=== PATIENT | male | born 1990 | race Caucasian/White ===

== ENCOUNTER 2020-04-25 18:14 | Emergency (ER) | payer SELFPAY ==
[~2020-04-25] VITALS: Ht 154.9 cm; Wt 73.0 kg
[2020-04-25] MEDS ORDERED: ONDANSETRON HCL 4MG/2ML INJ IV ONE (18:45)
[2020-04-25] MEDS ORDERED: MORPHINE SULFATE 2 MG/ML CPJ (NOT FOR IM USE) IV ONE (18:45)
[2020-04-25] MEDS ORDERED: ACETAMINOPHEN 325MG TABLET PO ONE (18:45)
[2020-04-25] MEDS ORDERED: TETANUS AND DIPHTHERIA TOX/PF 0.5ML SYR (ADULT) IM ONE (19:00)
[2020-04-25 19:25] LABS: HEMATOCRIT 42.1 % (42.0-52.0); HEMOGLOBIN 14.3 g/dL (14.0-18.0); MEAN CORPUSCULAR HEMOGLOBIN 29.3 pg (28.0-32.0); MEAN CORPUSCULAR VOLUME 85.9 fL (80.0-94.0); PLATELET 259 x1000/uL (130-400); RED CELL DISTRIBUTION WIDTH 14.8 % (11.6-14.6)
[2020-04-25 19:33] LABS: CHLORIDE 108 mEq/L (98-107)
[2020-04-25] MEDS ORDERED: IBUP-2029 MT (21:57)
[2020-04-25] MEDS ORDERED: ACET-2708 MT (21:57)
[2020-04-25] MEDS ORDERED: SODIUM CHLORIDE 0.9% 1,000 ML IV ONE (22:45)
[2020-04-25] MEDS ORDERED: IOHEXOL-300 100 ML BOTTLE ONE (23:08)
[2020-04-25 23:40] VITALS: BP 117/68
== END 2020-04-25 23:57 | disposition home or self-care (01) ==
LOC: ER 18:14
DX: S11.81XA Laceration without foreign body of other specified part of neck, initial encounter (principal); S01.81XA Laceration without foreign body of other part of head, initial encounter; M79.672 Pain in left foot; V43.52XA Car driver injured in collision with other type car in traffic accident, initial encounter; Y93.89 Activity, other specified; Y92.488 Other paved roadways as the place of occurrence of the external cause
CPT/HCPCS: 36415; 70498; 71275; 73630; 74177; 80053; 85027; 86850; 86900; 86901; 90471; 90714; 93005; 96374; 96375; 99285; J2270; J2405; Q9967